=== PATIENT | female | born 1985 | race African-American/Black ===

== ENCOUNTER 2016-12-04 04:11 | Emergency (ER) | payer OTHER ==
[2016-12-04 04:23] VITALS: BP 122/64; PULSE 88; TEMP 97.3; BMI 27.4
[2016-12-04] MEDS ORDERED: LIDOCAINE HCL 2% (20ML MULTI-DOSE VIAL) NR ONE (05:09)
[2016-12-04] MEDS ORDERED: LIDOCAINE 1%/EPI 1:100000 (50 ML MULTI DOSE VIAL) ONE (05:14)
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
== END 2016-12-04 05:54 | disposition home or self-care (01) ==
LOC: JER 04:11
PROC: 0HQ0XZZ Repair Scalp Skin, External Approach (ICD-10-PCS; principal; 2016-12-04)
PROC: 0HQ1XZZ Repair Face Skin, External Approach (ICD-10-PCS; 2016-12-04)
DX: S01.01XA Laceration without foreign body of scalp, initial encounter (principal); S01.81XA Laceration without foreign body of other part of head, initial encounter; X99.0XXA Assault by sharp glass, initial encounter; Y93.89 Activity, other specified; Y92.89 Other specified places as the place of occurrence of the external cause; Y99.8 Other external cause status; Y07.03 Male partner, perpetrator of maltreatment and neglect
CPT/HCPCS: 12002-25; 12011-25; 99282-25